=== PATIENT | female | born 1970 | race American Indian/Alaskan Native ===

== ENCOUNTER → 2019-06-08 | Outpatient (CLI) | payer BC | END | disposition home or self-care (01) | LOC: RAH 11:30 | PROVIDERS: ATTEND Student in an Organized Health Care Education/Training Program | DX: N60.02 Solitary cyst of left breast (principal) | CPT/HCPCS: 76641 ==

== ENCOUNTER 2019-06-27 06:25 | Day surgery (SDC) | payer BC ==
[2019-06-25 17:45] VITALS: BP 109/74
[2019-06-25 17:49] LABS: BASOPHILS % (AUTO) 0.9 % (0.0-5.0); EOSINOPHILS % (AUTO) 2.4 % (0.0-8.0); HEMATOCRIT 41.9 % (36-48); LYMPHOCYTES % (AUTO) 30.9 % (21.0-51.0); MEAN CORPUSCULAR HEMOGLOBIN 27.7 pg (27.0-33.0); MEAN CORPUSCULAR HGB CONC 33.5 g/dL (32.0-36.0); MEAN CORPUSCULAR VOLUME 82.8 fL (79-99); MONOCYTES % (AUTO) 4.9 % (3.0-13.0); NEUTROPHILS % (AUTO) 60.9 % (40.0-77.0); PLATELET COUNT (AUTO) 258 K/uL (130-400); RED BLOOD CELL COUNT(AUTO) 5.06 MIL/uL (4.00-5.50); RED CELL DISTRIBUTION WIDTH 14.4 % (11.0-15.5); WHITE BLOOD COUNT (AUTO) 10.2 K/uL (4.8-10.8)
[2019-06-25 18:13] LABS: ALBUMIN 3.8 g/dL (3.5-5.0); BILIRUBIN,TOTAL 0.5 mg/dL (0.2-1.0); CREATININE 0.8 mg/dL (0.5-1.5); INR 0.94 (0.85-1.15); PARTIAL THROMBOPLASTIN TIME 28.7 SEC (26.3-35.5); POTASSIUM 3.4 mmol/L (3.5-5.1); PROTHROMBIN TIME 9.9 SEC (9.6-11.6); TOTAL PROTEIN, SERUM 7.6 g/dL (6.0-8.3)
--- NOTE | 2019-06-26 10:30 | NUR ---
called Doctor Thurman office and spoke to Suzan about pt having abnormal lab of 3.4 potassium , per Suzan she would have Nurse notify Doctor Thurman , called back at 1230 to follow up if any new order for potassium level per Suzan khan has not reviewed labs, will cont to wait for new orders if any in regards to potassium.
[2019-06-27] VITALS (13 sets, daily range): BP systolic 107–126; BP diastolic 62–88
[~2019-06-27] VITALS: Ht 160 cm; Wt 81.5 kg
[2019-06-27] MEDS ORDERED: LACTATED RINGERS 1000ML 1,000 ML IV ONE (06:50)
[2019-06-27] MEDS ORDERED: CEFAZOLIN SODIUM 1 GM VIAL ONE (07:05)
[2019-06-27] MEDS ORDERED: MIDAZOLAM HCL 1 MG/ML 2ML VIAL ONE (07:44)
[2019-06-27] MEDS ORDERED: LIDOCAINE PF 2% 5ML ABBOJECT ONE (07:44)
[2019-06-27] MEDS ORDERED: PROPOFOL 10 MG/ML 20ML VIAL IV ONE (07:44)
[2019-06-27] MEDS ORDERED: FENTANYL CITRATE PF 50 MCG/1 ML 2ML VIAL ONE ×2 (07:44→08:48)
[2019-06-27] MEDS ORDERED: ONDANSETRON HCL 4 MG/2 ML VIAL ONE (07:57)
[2019-06-27] MEDS ORDERED: BUPIVACAINE/PF 0.5% 10ML VIAL ONE (08:19)
[2019-06-27] MEDS ORDERED: LIDOCAINE HCL 1% 20 ML VIAL ONE (08:19)
[2019-06-27] MEDS ORDERED: MEPERIDINE-PF 25 MG/ML SYG ONE (08:24)
--- NOTE | 2019-06-27 10:25 | NUR ---
PT LEFT IN WHEELCHAIR IN PVT CAR WITH . RX SCRIPT GIVEN TO ALONG WITH D/C INSTRUCTION WITH F/U APPT. DRESSING IS CLEAN AND DRY NO COMPLICATION UPON D/C.
== END 2019-06-27 10:25 | disposition home or self-care (01) ==
LOC: DAH 06:25
PROVIDERS: ATTEND Student in an Organized Health Care Education/Training Program
DX: D24.2 Benign neoplasm of left breast (principal); N60.02 Solitary cyst of left breast; E11.9 Type 2 diabetes mellitus without complications; F32.9 Major depressive disorder, single episode, unspecified; E66.01 Morbid (severe) obesity due to excess calories; Z68.31 Body mass index [BMI] 31.0-31.9, adult; Z88.8 Allergy status to other drugs, medicaments and biological substances; Z90.49 Acquired absence of other specified parts of digestive tract; Z79.01 Long term (current) use of anticoagulants; Z98.890 Other specified postprocedural states; Z82.49 Family history of ischemic heart disease and other diseases of the circulatory system; Z83.3 Family history of diabetes mellitus
CPT/HCPCS: 19120; 36415; 80053; 85025; 85610; 85730; 88108; 88305; 93005; A4215; A4221; A4222; A4223; A4450; A4452; A4600; A4649; A4663; A4930; A6260; G0168; J0690; J2001; J2175; J2250; J2405; J2704; J3010 ×2; J3490; J7120